=== PATIENT | female | born 1955 | race Hispanic/Latino ===

== ENCOUNTER 2020-08-16 13:54 | Emergency (ER) | payer OTHER ==
[2020-08-16] MEDS ORDERED: HYDROCODONE/APAP 7.5/325 MG TAB ONE (16:02)
--- NOTE | 2020-08-16 16:06 | RAD REPORT ---
EXAM DESCRIPTION: RAD - Femur Right - 08/16/2020 3:57 pm CLINICAL HISTORY: PAIN COMPARISON: No comparisons FINDINGS: Mild osteoarthritic changes are present in the right hip. No acute fracture or dislocation seen. No radiographic evidence of AVN.
--- NOTE | 2020-08-16 16:53 | RAD REPORT ---
EXAM DESCRIPTION: US - Extremity Venous Uni Ltd - 08/16/2020 4:45 pm CLINICAL HISTORY: PAIN Leg swelling and edema. COMPARISON: No comparisons FINDINGS: Right lower extremity venous system was interrogated with Doppler technique. Normal flow, compressibility and augmentation was noted. There is no DVT present. IMPRESSION: No evidence of right lower extremity deep venous thrombosis.
--- NOTE | 2020-08-16 16:58 | ER ---
Nurse's Notes [facility] Name: Jeanine Rodriguez Age: 64 yrs Sex: Female : 1955 Arrival Date: 08/16/2020 Time: 13:58 Bed 18 Private MD: Diagnosis: Pain in right leg-right thigh;Other muscle spasm Presentation: 08/16 14:13 Chief complaint: Patient states: R hip/thigh cramping for 2 days. Severe R hip pain ll1 today, difficult to walk. No falls or trauma. No urinary symptoms. Coronavirus screen: Client denies travel out of the [place] in the last 14 days. At this time, the client does not indicate any symptoms associated with coronavirus-19. Ebola Screen: Patient denies travel to an Ebola-affected area in the 21 days before illness onset. Initial Sepsis Screen: Does the patient meet any 2 criteria? No. Patient's initial sepsis screen is negative. Does the patient have a suspected source of infection? Yes: Bone or joint infection. Risk Assessment: Do you want to hurt yourself or someone else? Patient reports no desire to harm self or others. Onset of symptoms was August 15, 2020. 14:13 Method Of Arrival: Wheelchair ll1 14:13 Acuity: IGNACIO 3 ll1 Triage Assessment: 14:15 General: Appears uncomfortable, Behavior is calm, cooperative, appropriate for age. ll1 Pain: Complains of pain in R hip Quality of pain is described as aching, Pain began 1 day ago. Musculoskeletal: Circulation, motion, and sensation intact. Capillary refill < 3 seconds, Reports pain in R hip/thigh. Historical: - Allergies: 14:13 tramadol; ll1 - PMHx: 14:13 None; ll1 - PSHx: 14:13 3 BACK SURGERY; Hysterectomy; Cholecystectomy; KNEE/SHOULDER SX; Hernia repair; ll1 - Immunization history:: Flu vaccine is up to date. - Social history:: Smoking status: Patient denies any tobacco usage or history of. Screenin:10 Abuse screen: Denies threats or abuse. Denies injuries from another. Nutritional ph screening: No deficits noted. Tuberculosis screening: No symptoms or risk factors identified. Fall Risk None identified. Assessment: 16:10 General: Appears in no apparent distress. uncomfortable, Behavior is calm, cooperative, ph appropriate for age, Denies fever, feeling ill. Pain: Complains of pain in right quadriceps. Neuro: Level of Consciousness is awake, alert, obeys commands, Oriented to person, place, time, situation. Cardiovascular: Capillary refill < 3 seconds in bilateral fingers Patient's skin is warm and dry. Respiratory: Airway is patent Respiratory effort is even, unlabored. Derm: Skin is intact, Skin is pink, warm \T\ dry. Musculoskeletal: Circulation, motion, and sensation intact. Range of motion: intact in all extremities. 17:13 Reassessment: Patient appears in no apparent distress at this time. Patient and/or ph family updated on plan of care and expected duration. Pain level reassessed. Patient is alert, oriented x 3, equal unlabored respirations, skin warm/dry/pink. Vital Signs: 14:13 BP 127 / 68; Pulse 69; Resp 16; Temp 98.2; Pulse Ox 100% ; Weight 82.55 kg; Height 5 ll1 ft. 1 in. (154.94 cm); Pain 10/10; 17:13 BP 128 / 76; Pulse 61; Resp 18; Temp 98.3; Pulse Ox 98% on R/A; ph 14:13 Body Mass Index 34.39 (82.55 kg, 154.94 cm) ll1 ED Course: 13:58 Patient arrived in ED. ds1 14:13 Arm band placed on. ll1 14:15 Triage completed. ll1 15:32 Suzan Castanon FNP-C is [facility]. kb 15:32 Edmond Soria MD is Attending Physician. kb 15:39 Gayla Mahajan, BARBRA is Primary Nurse. ph 15:58 Femur Right XRAY In Process Unspecified. EDMS 16:10 Patient has correct armband on for positive identification. Bed in low position. Call ph light in reach. Side rails up X 1. Pulse ox on. NIBP on. Door closed. Noise minimized. Warm blanket given. 16:46 US Extremity Venous Unilateral Ltd In Process Unspecified. EDMS 17:14 No provider procedures requiring assistance completed. Patient did not have IV access ph during this emergency room visit. Administered Medications: 16:00 Drug: [place] (7.5 mg-325 mg) 1 tabs Route: PO; ph 16:59 Follow up: Response: No adverse reaction; Pain is decreased ph Outcome: 16:57 Discharge ordered by MD. tejeda 17:14 Discharged to home via wheelchair, with family. ph 17:14 Condition: good 17:14 Discharge instructions given to patient, Instructed on discharge instructions, follow up and referral plans. Demonstrated understanding of instructions, follow-up care, medications, Prescriptions given X 2. 17:15 Patient left the ED. ph Signatures: Dispatcher [employer] EDSuzan Rodríguez, ACCOUNT ANALYST-C ACCOUNT ANALYST-Shy Argueta ds1 Gayla Mahajan, RN RN Jill Nath RN RN ll1
--- NOTE | 2020-08-16 16:58 | EDPHYS ---
Physician Documentation [facility] Name: Jeanine Rodriguez Age: 64 yrs Sex: Female : 1955 Arrival Date: 08/16/2020 Time: 13:58 Bed 18 Private MD: ED Physician Edmond Soria HPI: 08/16 16:51 This 64 yrs old Female presents to ER via Wheelchair with complaints of Side kb Pain. 16:51 The patient presents with pain, that is acute, tenderness. The complaints affect the kb right quadriceps. Context: The problem was sustained at home, resulted from an unknown cause, the patient can fully bear weight, the patient is able to ambulate. Onset: The symptoms/episode began/occurred 2 day(s) ago. Modifying factors: The symptoms are alleviated by nothing. the symptoms are aggravated by movement. Associated signs and symptoms: The patient has no apparent associated signs or symptoms. Treatment prior to arrival includes: no previous treatment. Severity of symptoms: At their worst the symptoms were moderate, in the emergency department the symptoms are unchanged. The patient has not experienced similar symptoms in the past. The patient has not recently seen a physician. Pt reports pain to right quad for 2 days. Reports cramping pain, worse when trying to use muscle. No injury or trauma. . Historical: - Allergies: 14:13 tramadol; ll1 - PMHx: 14:13 None; ll1 - PSHx: 14:13 3 BACK SURGERY; Hysterectomy; Cholecystectomy; KNEE/SHOULDER SX; Hernia repair; ll1 - Immunization history:: Flu vaccine is up to date. - Social history:: Smoking status: Patient denies any tobacco usage or history of. ROS: 16:49 Constitutional: Negative for fever, chills, and weight loss, Cardiovascular: Negative kb for chest pain, palpitations, and edema, Respiratory: Negative for shortness of breath, cough, wheezing, and pleuritic chest pain, Abdomen/GI: Negative for abdominal pain, nausea, vomiting, diarrhea, and constipation, Back: Negative for injury and pain, Skin: Negative for injury, rash, and discoloration, Neuro: Negative for headache, weakness, numbness, tingling, and seizure. 16:49 MS/extremity: Positive for pain, tenderness, of the right quadriceps. Exam: 16:49 Constitutional: This is a well developed, well nourished patient who is awake, alert, kb and in no acute distress. Head/Face: Normocephalic, atraumatic. Chest/axilla: Normal chest wall appearance and motion. Nontender with no deformity. No lesions are appreciated. Cardiovascular: Regular rate and rhythm with a normal S1 and S2. No gallops, murmurs, or rubs. Normal PMI, no JVD. No pulse deficits. Respiratory: Lungs have equal breath sounds bilaterally, clear to auscultation and percussion. No rales, rhonchi or wheezes noted. No increased work of breathing, no retractions or nasal flaring. Abdomen/GI: Soft, non-tender, with normal bowel sounds. No distension or tympany. No guarding or rebound. No evidence of tenderness throughout. Skin: Warm, dry with normal turgor. Normal color with no rashes, no lesions, and no evidence of cellulitis. Neuro: Awake and alert, GCS 15, oriented to person, place, time, and situation. Cranial nerves II-XII grossly intact. Motor strength 5/5 in all extremities. Sensory grossly intact. Cerebellar exam normal. Normal gait. 16:49 Musculoskeletal/extremity: Extremities: grossly normal except: noted in the right quadriceps: pain, tenderness, ROM: limited active range of motion due to pain, in the right leg, Circulation is intact in all extremities. Sensation intact. Weight bearing: able to fully bear weight. Vital Signs: 14:13 BP 127 / 68; Pulse 69; Resp 16; Temp 98.2; Pulse Ox 100% ; Weight 82.55 kg; Height 5 ll1 ft. 1 in. (154.94 cm); Pain 10/10; 17:13 BP 128 / 76; Pulse 61; Resp 18; Temp 98.3; Pulse Ox 98% on R/A; ph 14:13 Body Mass Index 34.39 (82.55 kg, 154.94 cm) ll1 MDM: 15:33 Patient medically screened. kb 16:47 Data reviewed: vital signs, nurses notes. Data interpreted: Pulse oximetry: on room air kb is 100 %. Interpretation: normal. Counseling: I had a detailed discussion with the patient and/or guardian regarding: the historical points, exam findings, and any diagnostic results supporting the discharge/admit diagnosis, radiology results, the need for outpatient follow up, a family practitioner, to return to the emergency department if symptoms worsen or persist or if there are any questions or concerns that arise at home. 08/16 15:38 Order name: Femur Right XRAY; Complete Time: 16:08 kb 08/16 15:38 Order name: US Extremity Venous Unilateral Ltd; Complete Time: 16:57 kb Administered Medications: 16:00 Drug: [place] (7.5 mg-325 mg) 1 tabs Route: PO; ph 16:59 Follow up: Response: No adverse reaction; Pain is decreased ph Disposition: 08/17 14:24 Co-signature as Attending Physician, Edmond Soria MD I agree with the assessment and kdr plan of care. Disposition: 08/16/20 16:57 Discharged to Home. Impression: Pain in right leg - right thigh, Other muscle spasm. - Condition is Stable. - Discharge Instructions: Musculoskeletal Pain, Muscle Cramps and Spasms, [id number]. - Prescriptions for Ibuprofen 800 mg Oral Tablet - take 1 tablet by ORAL route every 8 hours As needed take with food; 30 tablet. Cyclobenzaprine 10 mg Oral Tablet - take 1 tablet by ORAL route every 8 hours As needed; 21 tablet. - Medication Reconciliation Form, Thank You Letter, Antibiotic Education, Prescription Opioid Use form. - Follow up: Emergency Department; When: As needed; Reason: Worsening of condition. Follow up: Private Physician; When: 2 - 3 days; Reason: Recheck today's complaints, Continuance of care, Re-evaluation by your physician. Signatures: Dispatcher [employer] EDVT Suzan Castaonn, COMPLAINT EVALUATION OFFICER-C COMPLAINT EVALUATION OFFICER-Edmond Yuan MD MD [facility] Gayla Mahajan, RN RN ph Jill Nath RN RN ll1 Corrections: (The following items were deleted from the chart) 08/16 17:15 16:57 08/16/2020 16:57 Discharged to Home. Impression: Pain in right leg - right thigh; ph Other muscle spasm. Condition is Stable. Discharge Instructions: Musculoskeletal Pain, Muscle Cramps and Spasms, [id number]. Prescriptions for Ibuprofen 800 mg Oral Tablet - take 1 tablet by ORAL route every 8 hours As needed take with food; 30 tablet, Cyclobenzaprine 10 mg Oral Tablet - take 1 tablet by ORAL route every 8 hours As needed; 21 tablet. and Forms are Medication Reconciliation Form, Thank You Letter, Antibiotic Education, Prescription Opioid Use. Follow up: Emergency Department; When: As needed; Reason: Worsening of condition. Follow up: Private Physician; When: 2 - 3 days; Reason: Recheck today's complaints, Continuance of care, Re-evaluation by your physician. kb
[2020-08-16 17:46] VITALS: BP 128/76; TEMP 98.3; O2SAT 98
== END 2020-08-16 17:15 | disposition home or self-care (01) ==
LOC: ER 13:54
DX: M62.838 Other muscle spasm (principal); Z88.5 Allergy status to narcotic agent
CPT/HCPCS: 93971; 99284